=== PATIENT | female | born 1950 | race Caucasian/White ===

== ENCOUNTER 2019-08-23 06:50 | Outpatient (CLI) | payer MEDICARE, OTHER ==
[2019-08-23 11:30] LABS: Prothrombin Time 13.5 sec (12.0-14.7)
[2019-08-23 12:21] LABS: #Basophils 0.1 thou/uL (0.0-0.2); #Eosinphils 0.4 thou/uL (0.0-0.7); #Monocytes 0.8 thou/uL (0.11-0.59); #Neutrophils 6.4 thou/uL (1.40-6.50); %Basophils 0.7 % (0.0-1.0); %Eosinophils 4.7 % (0.0-10.0); %Lymphocytes 11.4 % (21.0-51.0); %Neutrophils 74.2 % (42.0-75.0); Bacteria/HPF 4+ HPF (None Seen); Bilirubin Negative (Negative); Blood, Urine Negative (Negative); Clarity Clear (Clear); Glucose, Urine (Dipstick) Normal (Negative); Hemoglobin 13.7 g/dL (12.0-16.0); Leukocyte 25 Leu/uL (Negative); Mean Corpuscular HGB CONC 32.7 g/dL (32.0-36.0); Mean Corpuscular Hemoglobin 27.6 pg (27.0-31.0); Mean Corpuscular Volume 84.4 fL (78.0-98.0); Mean Platelet Volume 8.8 fL (7.4-10.4); Nitrite Negative (Negative); Platelet Count 173 thou/uL (130-400); Protein, Urine (Dipstick) 20 mg/dL (Neg-Trace); RBC Distribution Width 13.8 % (11.5-14.5); RBC/HPF 0-3 HPF (0-3); Red Blood Cell (RBC) Count 4.96 mill/uL (4.20-5.40); Squamous Epithelial 0-3 HPF (0-3); Urobilinogen Normal mg/dL (Less than 2); White Blood Cell (WBC) Count 8.7 thou/uL (4.8-10.8)
[2019-08-23 12:25] LABS: Anion Gap 13 mmol/L (10-20); BUN (Urea Nitrogen) 15 mg/dL (9.8-20.1); Calc. Creatinine Clearance 0 mL/min (70-130); Calcium 9.2 mg/dL (7.8-10.44); Carbon Dioxide 24 mmol/L (23-31); Chloride 108 mmol/L (98-107); Estimated GFR-MDRD 66; Glucose 199 mg/dL (83-110); Potassium 3.8 mmol/L (3.5-5.1); Sodium 141 mmol/L (136-145)
[2019-08-24 12:07] LABS: SARS-CoV-2 MS2 Positive; SARS-CoV-2 N Gene Negative; SARS-CoV-2 S Gene Negative; SARS-CoV-2 orf1ab Negative
== END 2019-08-23 06:51 | disposition home or self-care (01) ==
LOC: LABBT 06:50
PROVIDERS: ATTEND Orthopaedic Surgery
DX: Z01.818 Encounter for other preprocedural examination (principal); Z11.59 Encounter for screening for other viral diseases; M17.11 Unilateral primary osteoarthritis, right knee
CPT/HCPCS: 80048; 81001; 85025; 85610; U0003; 87635; 93005; 93010

== ENCOUNTER 2019-08-28 06:37 | Day surgery (SDC) | payer MEDICARE ==
[2019-08-22 10:22] VITALS: BMI 32.3
[2019-08-28] MEDS ORDERED: Midazolam HCl 2 mg/2 ml Vial ONE (06:56)
[2019-08-28] MEDS ORDERED: Fentanyl 100 MCG/2 ML VIAL ONE ×4 (06:57→12:02)
[2019-08-28] MEDS ORDERED: Vancomycin 1.5 GRAM/300 ML BAG ONE (07:00)
[2019-08-28] MEDS ORDERED: Tranexamic Acid 1,000 MG/10 ML VIAL ONE ×2 (07:00→11:25)
[2019-08-28] MEDS ORDERED: Sodium Chloride 0.9% 100 ML ONE (07:00)
[2019-08-28] MEDS ORDERED: Lidocaine 1% (PF) 30 ML VIAL ONE (07:45)
[2019-08-28 08:00] LABS: INR-International Normal Ratio 1.1; PTT 28.4 sec (22.9-36.1); Prothrombin Time 13.8 sec (12.0-14.7)
[2019-08-28] MEDS ORDERED: Zolpidem Tartrate 5 MG TAB PO PRN ×3 (08:30→13:24)
[2019-08-28] MEDS ORDERED: Fentanyl 100 MCG/2 ML VIAL SLOW IVP PRN (08:30)
[2019-08-28] MEDS ORDERED: Ondansetron PF 4 MG/2 ML Vial IVP PRN (08:30)
[2019-08-28] MEDS ORDERED: Ropivacaine HCl/PF 250 ML in Premix Bag 1 BAG NERVE BLCK SCH (08:30)
[2019-08-28] MEDS ORDERED: Promethazine HCl 25 MG/ML VIAL IM PRN ×3 (08:30→10:00)
[2019-08-28] MEDS ORDERED: Bupivacaine PF 0.5% 30 ML VIAL ONE (09:08)
[2019-08-28] MEDS ORDERED: HYDROcodone/Acetaminophen 10/325 mg Tablet PO PRN (09:47)
[2019-08-28] MEDS ORDERED: Acetaminophen 325 MG TAB PO PRN (09:47)
[2019-08-28] MEDS ORDERED: diphenhydrAMINE 25 MG CAP PO PRN (09:47)
[2019-08-28] MEDS ORDERED: Promethazine HCl 25 MG/ML VIAL SLOW IVP PRN (10:00)
[2019-08-28] MEDS ORDERED: Ondansetron HCl/PF 4 MG/2 ML Vial IVP PRN (10:00)
[2019-08-28] MEDS ORDERED: Ketorolac Tromethamine 30 MG/ML VIAL IVP PRN (10:00)
[2019-08-28] MEDS ORDERED: Tranexamic Acid 1,000 MG in Sodium Chloride 0.9% 100 ML IVPB SCH (10:00)
[2019-08-28 10:35] LABS: Bacteria/HPF Rare-Few HPF (None Seen); Bilirubin Negative (Negative); Blood, Urine Negative (Negative); Clarity Clear (Clear); Glucose, Urine (Dipstick) Normal (Negative); Ketone, Urine Negative (Negative); Leukocyte Negative Leu/uL (Negative); Mucous/LPF Rare LPF (<2+); Nitrite Negative (Negative); Protein, Urine (Dipstick) 20 mg/dL (Neg-Trace); RBC/HPF 0-3 HPF (0-3); Specific Gravity, Urine 1.023 (1.002-1.036); Squamous Epithelial None Seen HPF (0-3); Urobilinogen Normal mg/dL (Less than 2)
--- NOTE | 2019-08-28 11:37 | OP ---
DATE OF PROCEDURE: 08/28/2019 PREOPERATIVE DIAGNOSIS: Right knee osteoarthrosis. POSTOPERATIVE DIAGNOSIS: Right knee osteoarthrosis. PROCEDURE PERFORMED: Right total knee replacement using [employer] pinless navigation. EMERGENCY CARE ATTENDANT: Ricardo Berrios PA-C ESTIMATED BLOOD LOSS: Minimal. COMPLICATIONS: None. ANESTHESIA: The patient had general anesthetic as well as preoperative block. IMPLANTS: To the right knee is [employer] total knee system. The femur was a size 5 cruciate-retaining right femur, tibia was size 5 primary tibial baseplate. We used a 5 x 9 mm CS X3 tibial insert and an asymmetric 29 x 9 X3 patella. DISPOSITION: She did go to recovery room in stable condition. INDICATIONS: This is a 69-year-old female, who has had right knee pain for quite a long time. At this point, she has failed nonoperative treatment. DESCRIPTION OF PROCEDURE: After all appropriate consent forms were explained and signed, the patient was taken back to the operating room and at this time was given general anesthetic. Once the level of anesthesia was appropriate, a well-padded tourniquet was placed on the right leg, and the leg was then prepped and draped in standard surgical fashion. The limb was exsanguinated and tourniquet taken up to 300 mmHg. Midline incision was made with a 10 blade down through the skin and subcutaneous tissue. Bovie electrocautery was used to coagulate any brisk venous bleeding. A new blade was used to make a medial parapatellar arthrotomy. Small subperiosteal release was performed medially and excess fat pad was removed. The knee was flexed up to gain access to the femur. The femur was navigated and distal femoral resection was made. Epicondylar access was used to align our sizing jig and this was pinned in place. The femur was a size 5 cruciate-retaining right femur. 4:1 cutting block was applied and pinned. Anterior and posterior chamfer cuts were then made. We navigated out our proximal tibia and made our proximal tibial resection. Spreaders were used to remove any posterior osteophytes off the back of the femur as well as remaining meniscal tissue. A long alignment chauncey was then used to achieve correct rotation of our tibial baseplate and tibia was size 5 primary tibial baseplate was chosen. This was pinned in place. We trialed the polyethylene and we used a 5 x 9 mm CS X3 tibial insert polyethylene gave us full extension and good stability throughout range of motion. Two towel clips and a saw were used to cut our patella. Three lug nuts were drilled and an asymmetric 29 x 9 X3 patella was trialed which sat nicely in the trochlear groove. We then drilled our femur and punched our tibia. All components were removed. The knee was thoroughly irrigated and dried. Cement was mixed into the cement gun on the back table. Components were then placed. The knee was held out in full extension until the cement had dried. All excess bone cement was removed. Multiple #2 Vicryl stitches as well as a Quill were used to close our extensor mechanism. 0 Quill followed by a running Monoderm was then used to close the skin. Surgicel glue was then used on the skin. Once this had dried, soft tissue dressing was applied to the limb, tourniquet was let down, and the toes pinked up nicely. The patient was then awakened and taken to the recovery room in stable condition. All counts were correct at the end of the case. The patient did receive preoperative IV antibiotics. The patient was injected with Marcaine for postoperative pain relief. Job ID: [id number]
[2019-08-28] MEDS ORDERED: Bupivacaine HCl 0.5%/Epinephrine 1:200,000/PF 30 ml Vial ONE (12:14)
[2019-08-28] MEDS ORDERED: Ropivacaine 0.2% HCl/PF (40 MG/20 ML VIAL) ONE (12:14)
[2019-08-28] MEDS ORDERED: Lidocaine 1% PF 5 ML VIAL ONE (12:14)
[2019-08-28] MEDS ORDERED: PHENYLEPHRINE-NS 100 MCG/ML 10 ML SYRINGE ONE (12:14)
[2019-08-28] MEDS ORDERED: Ondansetron PF 4 MG/2 ML Vial ONE (12:14)
[2019-08-28] MEDS ORDERED: Ketorolac Tromethamine 30 MG/ML VIAL ONE (12:14)
[2019-08-28] MEDS ORDERED: EPHEDRINE 25 MG/5 ML SYRINGE ONE (12:14)
[2019-08-28] MEDS ORDERED: PROPOFOL 200 MG/20 ML VIAL ONE (12:14)
[2019-08-28] MEDS ORDERED: Labetalol HCl 100 MG/20 ML VIAL SLOW IVP PRN (13:16)
[2019-08-28] MEDS: Ketorolac Tromethamine 30 MG/ML VIAL IVP SCH ×3 (13:18→23:36)
[2019-08-28] MEDS: Ondansetron PF 4 MG/2 ML Vial IVP PRN (13:29)
[2019-08-28] MEDS ORDERED: Amlodipine 5 MG TAB PO SCH (13:30)
[2019-08-28] MEDS ORDERED: Lisinopril 20 MG TAB PO SCH (13:30)
[2019-08-28] MEDS ORDERED: Carvedilol 25 MG TAB PO SCH (13:30)
[2019-08-28] MEDS: Sodium Chloride 0.9% 1,000 ML IV SCH ×2 (13:40→20:31)
[2019-08-28] MEDS: CEFAZOLIN 2 GM in Premix Bag 1 BAG IVPB SCH ×2 (15:33→23:36)
[2019-08-28] MEDS: traMADol HCl 50 MG TAB PO PRN ×2 (16:27→23:35)
--- NOTE | 2019-08-28 17:51 | PDOC.HOSPP ---
- Subjective Encounter Date: 08/28/19 Encounter Time: 15:00 Subjective: Patient seen and examined for med mngt. Pain controlled. No new complaints. - Objective Vital Signs & Weight: Vital Signs (12 hours) Temp Pulse Resp BP Pulse Ox 08/28/19 17:28 60 16 166/83 H 08/28/19 16:14 71 16 163/64 H 08/28/19 15:10 57 L 16 152/73 H 08/28/19 14:10 63 16 161/89 H 08/28/19 13:40 62 16 180/91 H 08/28/19 13:10 66 16 178/96 H 08/28/19 13:00 95 08/28/19 12:40 97.8 F 66 16 214/111 H 95 Weight Weight 238 lb I&O: 08/27/19 08/28/19 08/29/19 06:59 06:59 06:59 Intake Total 950 Output Total 450 Balance 500 Result Diagrams: 08/29/19 04:57 EKG Reviewed by me: Yes (SR) Hospitalist ROS - Review of Systems Respiratory: denies: cough, dry, shortness of breath, hemoptysis, SOB with excertion, pleuritic pain, sputum, wheezing, other Cardiovascular: denies: chest pain, palpitations, orthopnea, paroxysmal noc. dyspnea, edema, light headedness, other - Medication Medications: Active Medications Generic Name Dose Route Start Last Admin Trade Name Freq PRN Reason Stop Dose Admin Acetaminophen 650 mg 08/28/19 09:47 08/28/19 16:28 Tylenol PO 650 mg Q4H PRN Administration Headache/Fever or Pain Fentanyl 50 mcg 08/28/19 08:30 08/28/19 13:33 Sublimaze SLOW IVP 50 mcg Q1H PRN Administration breakthrough pain Cefazolin Sodium/Dextrose 2 gm 50 mls @ 100 mls/hr 08/28/19 15:00 08/28/19 15 :33 / Device IVPB 08/28/19 23:29 50 mls 0700,1500,2300 JOSEE Administration Sodium Chloride 1,000 mls @ 100 mls/hr 08/28/19 10:00 08/28/19 13:40 Normal Saline 0.9% IV 1,000 mls .Q10H JOSEE Administration Ketorolac Tromethamine 15 mg 08/28/19 12:00 08/28/19 13:18 Toradol IVP 08/30/19 06:01 Not Given Q6HR JOSEE Ondansetron HCl 4 mg 08/28/19 09:47 08/28/19 13:29 Zofran IVP 4 mg Q6H PRN Administration Nausea/Vomiting Promethazine HCl 12.5 mg 08/28/19 09:47 08/28/19 15:32 Phenergan IM 12.5 mg Q4H PRN Administration Nausea/Vomiting Tramadol HCl 100 mg 08/28/19 09:47 08/28/19 16:27 Ultram PO 100 mg Q6H PRN Administration Moderate Pain (4-6) - Exam General Appearance: NAD Heart: RRR, no gallops Respiratory: no wheezes, no ronchi Gastrointestinal: non-tender, non-distended, normal bowel sounds Extremities: no cyanosis Neurological: no focal deficits Psychiatric: normal affect, A&O x 3 Hosp A/P - Plan DVT proph w/SCDs HTN HLD Obesity BMI 32.3 CAD s/p stent DJD PLAN: Cont Coreg Cont Amlodipine Cont ASA Cont Lisinopril Will follow PRN Thank you for this consultation. Full code. DPAO - family/self
[2019-08-28] MEDS ORDERED: Vancomycin HCl 1.5 GM in Sodium Chloride 0.9% 250 ML 300 ML IVPB SCH (19:00)
[2019-08-28] MEDS ORDERED: Vancomycin 1.5 GRAM/300 ML BAG 1.5 GM in Premix Bag 1 BAG IVPB SCH (19:00)
[2019-08-28] MEDS: Senokot S 8.6-50 MG TAB PO SCH (20:29)
[2019-08-28] MEDS: Carvedilol 25 MG TAB PO SCH (20:29)
[2019-08-28] MEDS: Aspirin 81 mg Enteric Coated Tablet PO SCH (20:29)
[2019-08-28] MEDS: Atorvastatin Calcium 40 MG TAB PO SCH (20:29)
[2019-08-28] MEDS: Ferrous Gluconate 324 MG TAB PO SCH (20:30)
[2019-08-28] MEDS: HYDROcodone/Acetaminophen 10/325 mg Tablet PO PRN (20:30)
[2019-08-28] MEDS ORDERED: Ferrous Gluconate 324 MG TAB PO SCH (21:00)
[2019-08-28] MEDS ORDERED: Senokot S 8.6-50 MG TAB PO SCH (21:00)
[2019-08-28] MEDS ORDERED: Atorvastatin Calcium 40 MG TAB PO SCH (21:00)
[2019-08-28] MEDS ORDERED: Aspirin 81 mg Enteric Coated Tablet PO SCH (21:00)
[2019-08-29] MEDS: HYDROcodone/Acetaminophen 10/325 mg Tablet PO PRN ×2 (03:46→15:36)
[2019-08-29] MEDS: Ketorolac Tromethamine 30 MG/ML VIAL IVP SCH ×3 (05:03→18:32)
[2019-08-29] MEDS: traMADol HCl 50 MG TAB PO PRN ×2 (05:03→20:53)
[2019-08-29 05:29] LABS: Hemoglobin 11.8 g/dL (14.0-18.0); Mean Corpuscular HGB CONC 33.1 g/dL (32.0-36.0); Mean Corpuscular Hemoglobin 27.9 pg (27.0-31.0); Mean Corpuscular Volume 84.3 fL (78.0-98.0); Platelet Count 156 thou/uL (130-400); RBC Distribution Width 13.5 % (11.5-14.5); Red Blood Cell (RBC) Count 4.22 mill/uL (4.70-6.10); White Blood Cell (WBC) Count 11.8 thou/uL (4.8-10.8)
[2019-08-29] MEDS: Sodium Chloride 0.9% 1,000 ML IV SCH ×2 (05:58→16:20)
[2019-08-29] MEDS: Ferrous Gluconate 324 MG TAB PO SCH ×2 (08:31→20:53)
[2019-08-29] MEDS: Aspirin 81 mg Enteric Coated Tablet PO SCH ×2 (08:31→20:53)
[2019-08-29] MEDS: Multivitamin W/ Minerals 1 TAB PO SCH (08:31)
[2019-08-29] MEDS: Clopidogrel Bisulfate 75 MG TAB PO SCH (08:31)
[2019-08-29] MEDS: Lisinopril 20 MG TAB PO SCH (08:32)
[2019-08-29] MEDS: Carvedilol 25 MG TAB PO SCH ×2 (08:32→20:53)
[2019-08-29] MEDS: Cyanocobalamin (Vitamin B-12) 1,000 MCG TAB PO SCH (08:32)
[2019-08-29] MEDS: Senokot S 8.6-50 MG TAB PO SCH ×2 (08:33→20:53)
[2019-08-29] MEDS: Amlodipine 5 MG TAB PO SCH (08:33)
[2019-08-29] MEDS ORDERED: Amlodipine 5 MG TAB PO SCH (09:00)
[2019-08-29] MEDS ORDERED: Lisinopril 20 MG TAB PO SCH (09:00)
[2019-08-29] MEDS ORDERED: Multivitamin W/ Minerals 1 TAB PO SCH (09:00)
[2019-08-29] MEDS ORDERED: Non-Formulary Item 1 EACH (Multivitamin [Multivitamins] 1 CAP) PO SCH (09:00)
--- NOTE | 2019-08-29 14:32 | PRG ---
DATE OF SERVICE: 08/29/2019 SUBJECTIVE: Andrea is a 69-year-old male postop day 1 from right total knee arthroplasty. He is doing relatively well. He has no complaints. He is able to ambulate greater than 80 feet this morning. OBJECTIVE: VITAL SIGNS: Temperature 98.5, pulse 65, blood pressure is 127/64, respiratory rate 16 and nonlabored, and O2 saturation is 98% on room air. GENERAL: He is alert and oriented to person, place, time, situation, responsive, appropriate examiner, conversive. EXTREMITIES: His incision is clean without erythema. No strike through. No malrotation. LABORATORY DATA: Hemoglobin and hematocrit 11.8 and 35.5. IMPRESSIONS: A 69-year-old male postop day 1 right total knee arthroplasty, doing well. PLAN: Continue current care. Probable discharge home tomorrow. Job ID: [id number]
[2019-08-29] MEDS: Atorvastatin Calcium 40 MG TAB PO SCH (20:53)
[2019-08-30] MEDS: Ketorolac Tromethamine 30 MG/ML VIAL IVP SCH ×2 (00:57→05:16)
[2019-08-30] MEDS: HYDROcodone/Acetaminophen 10/325 mg Tablet PO PRN ×2 (01:01→09:20)
[2019-08-30] MEDS: Sodium Chloride 0.9% 1,000 ML IV SCH ×2 (03:21→12:12)
[2019-08-30 03:56] VITALS: TEMP 98.5
[2019-08-30] MEDS: traMADol HCl 50 MG TAB PO PRN (05:14)
[2019-08-30 05:57] LABS: Hemoglobin 11.3 g/dL (14.0-18.0); Mean Corpuscular HGB CONC 31.8 g/dL (32.0-36.0); Mean Corpuscular Hemoglobin 26.8 pg (27.0-31.0); Mean Corpuscular Volume 84.4 fL (78.0-98.0); Mean Platelet Volume 8.4 fL (7.4-10.4); Platelet Count 156 thou/uL (130-400); RBC Distribution Width 13.5 % (11.5-14.5); Red Blood Cell (RBC) Count 4.23 mill/uL (4.70-6.10); White Blood Cell (WBC) Count 12.6 thou/uL (4.8-10.8)
[2019-08-30] MEDS: Aspirin 81 mg Enteric Coated Tablet PO SCH (08:40)
[2019-08-30] MEDS: Amlodipine 5 MG TAB PO SCH (08:40)
[2019-08-30] MEDS: Cyanocobalamin (Vitamin B-12) 1,000 MCG TAB PO SCH (08:40)
[2019-08-30] MEDS: Senokot S 8.6-50 MG TAB PO SCH (08:41)
[2019-08-30] MEDS: Ondansetron PF 4 MG/2 ML Vial IVP PRN (08:41)
[2019-08-30] MEDS: Multivitamin W/ Minerals 1 TAB PO SCH (08:41)
[2019-08-30] MEDS: Clopidogrel Bisulfate 75 MG TAB PO SCH (08:41)
[2019-08-30] MEDS: Carvedilol 25 MG TAB PO SCH (08:41)
[2019-08-30] MEDS: Lisinopril 20 MG TAB PO SCH (08:41)
[2019-08-30] MEDS: Ferrous Gluconate 324 MG TAB PO SCH (08:41)
[2019-08-30] MEDS ORDERED: cloNIDine 0.1 MG TAB PO PRN (09:58)
[2019-08-30 11:34] VITALS: BP 149/75
== END 2019-08-30 15:10 | disposition home or self-care (01) ==
LOC: EDSEX 06:37 → SDC 06:37 → SJJU 12:40 → SDC 08-30 15:10
PROVIDERS: ATTEND Orthopaedic Surgery
PROC: 0SRC0J9 Replacement of Right Knee Joint with Synthetic Substitute, Cemented, Open Approach (ICD-10-PCS; principal; 2019-08-28)
PROC: 8E0YXBZ Computer Assisted Procedure of Lower Extremity (ICD-10-PCS; 2019-08-28)
PROC: 3E0T3BZ Introduction of Anesthetic Agent into Peripheral Nerves and Plexi, Percutaneous Approach (ICD-10-PCS; 2019-08-28)
PROC: 3E0T3BZ Introduction of Anesthetic Agent into Peripheral Nerves and Plexi, Percutaneous Approach (ICD-10-PCS; 2019-08-28)
DX: M17.11 Unilateral primary osteoarthritis, right knee (principal); G89.18 Other acute postprocedural pain; I10 Essential (primary) hypertension; E78.5 Hyperlipidemia, unspecified; I25.10 Atherosclerotic heart disease of native coronary artery without angina pectoris; E66.9 Obesity, unspecified; Z68.32 Body mass index [BMI] 32.0-32.9, adult; Z79.02 Long term (current) use of antithrombotics/antiplatelets; Z79.899 Other long term (current) drug therapy; Z95.5 Presence of coronary angioplasty implant and graft; Z96.652 Presence of left artificial knee joint
CPT/HCPCS: 20985; 27447; 64445; 64448; 81001; 85027; 85610; 85730; 87086; 97110 ×2; 97116 ×2; 97139 ×2; 97530 ×2; C1713; C1776; 36415; J0670; J0690; J1885; J2001; J2250; J2405; J2550; J2704; J2795; J3010; J3370; J3490; S0020